=== PATIENT | female | born 1950 | race Caucasian/White ===

== ENCOUNTER 2019-04-26 17:14 | Inpatient (IN) ==
[2019-04-26] MEDS ORDERED: DUONEB (A & A) INH ONE (18:26)
--- NOTE | 2019-04-26 18:31 | PROVIDER DOCUMENTATION ---
HPI-Respiratory General - General Chief Complaint: Shortness of Breath Stated Complaint: pneumonia Time Seen by Provider: 04/26/19 18:00 Source: patient, family Allergies/Adverse Reactions: Patient Allergies Allergy/AdvReac Type Severity Reaction Status Date / Time Penicillins Allergy HIVES Verified 04/26/19 18:55 Home Medications: Home Medication List Medication Instructions Recorded Confirmed Last Taken Type Acetaminophen 650 mg PO PRN PRN 04/26/19 04/26/19 Unknown History Amlodipine [Norvasc] 1 tab PO DAILY 04/26/19 04/26/19 04/26/19 09:00 History Amoxicillin/Potassium Clav 1 tab PO DAILY 04/26/19 04/26/19 04/26/19 History [Amox-Clav 500-125 mg Tablet] Aspirin 1 tab PO DAILY 04/26/19 04/26/19 04/26/19 09:00 History Carbidopa/Levodopa [Sinemet 25/100] 1 tab PO DAILY 04/26/19 04/26/19 04/26/19 History Duloxetine [Cymbalta] 60 mg PO BID 04/26/19 04/26/19 04/26/19 09:00 History Gabapentin 1 tab PO Q4H 04/26/19 04/26/19 04/26/19 History Iron Carbonyl/Ascorbic Acid 1 tab PO DAILY 04/26/19 04/26/19 04/25/19 History [Icar-C] Levofloxacin [Levaquin] 500 mg PO DAILY 04/26/19 04/26/19 04/26/19 09:00 History Magnesium Hydroxide [Milk of 30 ml PO PRN PRN 04/26/19 04/26/19 Unknown History Magnesia] Pramipexole Di-HCl [Mirapex] 1 tab PO HS 04/26/19 04/26/19 04/25/19 21:00 History Pravastatin Sodium 40 mg PO DAILY 04/26/19 04/26/19 04/25/19 21:00 History Telmisartan/Hydrochlorothiazid 1 tab PO DAILY 04/26/19 04/26/19 04/26/19 09:00 History [Telmisartan-Hctz 80-25 mg Tab] Temazepam 1 tab PO DAILY 04/26/19 04/26/19 04/25/19 21:00 History - History of Present Illness-Resp Nature of Presenting Problem: Patient is a 69 year old white female with history of diabetes, osteomyelitis of right Charcot foot, HTN,COPD, and Parkinsons who presents by EMS from her home in [place] for increasing shortness of breath, wheezing, and productive yellow cough for past 3 days. Denies fever. [facility] after prolonged IV antibiotic treatment for osteo of right foot. Family report home oxygen sat in 70's. Followed by Dr. Sainz. Quality of Pain: reports: none Onset/Duration: reports: 3 days ago Timing: reports: still present, getting worse Exposure: reports: unknown cause Review of Systems - Adult - REVIEW OF SYSTEMS - ADULT Constitutional: reports: chills Eyes: reports: no symptoms reported Cardiovascular: denies: chest pain Respiratory: reports: cough, shortness of breath, wheezing Gastrointestinal: reports: no symptoms reported Genitourinary: reports: no symptoms reported Musculoskeletal: reports: see HPI Integumentary: reports: see HPI Neurological: reports: no symptoms reported Psychiatric: reports: anxiety Endocrine: reports: see HPI Hematologic/Lymphatic: reports: no symptoms reported Allergic/Immunologic: reports: no symptoms reported All Other Systems: Reviewed and Negative Past History - Adult - PAST MEDICAL HISTORY-ADULT Review of Records: reports: Old Records Reviewed, Nursing Assessment Review, Medications Reviewed, Social history reviewed & non-contributory. Major Childhood Illnesses: reports: denies history Cardiovascular: reports: HTN Respiratory: reports: bronchitis Gastrointestinal: reports: denies history Genitourinary: reports: denies history Musculoskeletal: reports: other (right Charcot foot with osteomyelitis) Neurological: reports: Parkinson's Psychiatric: reports: anxiety Endocrine/Immune: reports: Diabetes Diabetes Type: Type 2 - PRIOR SURGERIES/PROCEDURES Surgical/Procedure History: reports: cholecystectomy, hysterectomy - IMMUNIZATION STATUS Childhood Immunizations: UTD - FAMILY HISTORY Family History: reviewed, not pertinent - SOCIAL HISTORY Smoking: non-smoker Alcohol Use Frequency: rarely Living Situation: family Physical Exam-General - PHYSICAL EXAM-ADULT Initial Vital Signs Reviewed: Yes - CONSTITUTIONAL General Appearance: alert, obese, other (generalized weakness) - EYES Eyes: other (clear) - HEAD, EARS, NOSE, MOUTH & THROAT HENMT: moist mucous membranes - NECK Neck: supple - RESPIRATORY Respiratory: no respiratory distress, no accessory muscle use, decreased breath sounds, wheezing - CARDIOVASCULAR Cardiovascular: regular rate, rhythm - GASTROINTESTINAL (ABDOMEN) Abdominal Exam: non tender, soft, other (obese) - LYMPHATIC Lymphatic: no adenopathy - MUSCULOSKELETAL Back Exam: normal inspection Extremity: other (right charcot foot with no open wounds or sign of infection) Peripheral Pulses: radial (R): 2+, radial (L): 2+ - SKIN Integumentary: normal color, normal turgor, warm/dry - NEUROLOGIC Neurologic: other (resting pill rolling hand tremor) - PSYCHIATRIC Psych/Mental Status: oriented x 3, anxious Progress - PLAN OF CARE/RESULTS Progress/Plan/Lab Results: Vital Signs - 8 hr 04/26/19 19:30 04/26/19 21:42 04/27/19 01:58 Pulse Rate 88 71 97 H Respiratory Rate 20 18 18 Blood Pressure 133/66 125/77 O2 Sat by Pulse Oximetry 95 98 99 Laboratory Results - last 24 hr 04/26/19 04/26/19 04/26/19 18:41 19:04 19:04 WBC RBC Hgb Hct MCV MCH MCHC RDW Std Deviation Plt Count MPV Neut % (Auto) Lymph % (Auto) [place] % (Auto) Eos % (Auto) Baso % (Auto) Neut # (Auto) Lymph # (Auto) [place] # (Auto) Eos # (Auto) Baso # (Auto) D-Dimer, Quantitative 0.99 H Specimen Type ARTERIAL Sample Site R RADIAL pH 7.41 pCO2 51 H* pO2 61 HCO3 29.8 H Base Excess 6.4 H Oxyhemoglobin 90.6 L ABG O2 Sat (Calculated) 15.6 ABG O2 Saturation 93.6 L ABG Carboxyhemoglobin 2.10 ABG Methemoglobin 1.1 Christopher Test YES A-a O2 Difference 25.0 Total Hemoglobin 12.2 Lactate 1.30 Blood Gas Modality CANNULA FiO2 % 21.0 Sodium 145 Potassium 3.8 Chloride 101 Carbon Dioxide 30 Anion Gap 14 BUN 25 H Creatinine 0.5 Estimated GFR/1.73 m2 > 60 BUN/Creatinine Ratio 50 Glucose 104 Calculated Osmolality 293 Calcium 9.5 Total Bilirubin 0.35 AST 13 ALT < 5 L Alkaline Phosphatase 98 Troponin T High Sens Kkg-H-Ilypjiqvauz Pept Total Protein 7.4 Albumin 4.2 Globulin 3.2 Albumin/Globulin Ratio 1.3 04/26/19 04/26/19 04/26/19 19:04 19:04 19:04 WBC 5.69 RBC 4.16 L Hgb 11.9 L Hct 38.5 MCV 92.5 MCH 28.6 MCHC 30.9 L RDW Std Deviation 15.3 H Plt Count 203 MPV 11.5 H Neut % (Auto) 66.6 Lymph % (Auto) 14.8 L [place] % (Auto) 14.9 H Eos % (Auto) 3.5 Baso % (Auto) 0.2 Neut # (Auto) 3.79 Lymph # (Auto) 0.84 L [place] # (Auto) 0.85 H Eos # (Auto) 0.20 Baso # (Auto) 0.01 D-Dimer, Quantitative Specimen Type Sample Site pH pCO2 pO2 HCO3 Base Excess Oxyhemoglobin ABG O2 Sat (Calculated) ABG O2 Saturation ABG Carboxyhemoglobin ABG Methemoglobin Christopher Test A-a O2 Difference Total Hemoglobin Lactate Blood Gas Modality FiO2 % Sodium Potassium Chloride Carbon Dioxide Anion Gap BUN Creatinine Estimated GFR/1.73 m2 BUN/Creatinine Ratio Glucose Calculated Osmolality Calcium Total Bilirubin AST ALT Alkaline Phosphatase Troponin T High Sens 10 Xls-G-Qasekhsegmb Pept 112 Total Protein Albumin Globulin Albumin/Globulin Ratio Orders Category Date Time Status Saline Loc NOW Care 04/26/19 18:02 Active CHEST-PORTABLE [RAD] Stat Exams 04/26/19 18:03 Completed CTA [CT ANGIOGRM PULMONARY ARTERIES] [CT] Stat Exams 04/26/19 21:26 Completed ABG [RESP] Routine Lab 04/26/19 18:41 Completed BLOOD CULTURE [BLDCUL] Stat Lab 04/26/19 21:02 Results CBC WITH DIFF [HEME] Stat Lab 04/26/19 19:04 Completed COMPREHENSIVE METABOLIC PANEL [CHEM] Stat Lab 04/26/19 19:04 Completed D-DIMER [COAG] Stat Lab 04/26/19 19:04 Completed PRO B-NATRIURETIC PEPTIDE Stat Lab 04/26/19 19:04 Completed TROPONIN T HIGH SENSITIVITY Stat Lab 04/26/19 19:04 Completed Albuterol 2.5MG/Ipratrop 0.5MG [Duoneb (A & A)] Med 04/26/19 18:26 Discontinued 3 ml INH NOW ONE CefTRIAXONE [Rocephin] 1 gm Med 04/26/19 19:20 Discontinued 0.9% Sodium Chloride Inj [Ns] 50 ml IV NOW Methylprednisolone Sod Succ [Solu-Medrol] Med 04/26/19 19:20 Discontinued 125 mg IV STAT ONE Aerosol Treatments Routine Oth 04/26/19 18:26 Completed Aerosol Treatments Stat Oth 04/26/19 18:26 Completed Pulse Oximetry Stat Oth 04/26/19 18:02 Completed EKG [EKG] Stat Ther 04/26/19 18:[address] Ward at 2325 to admit patient Result Diagrams: 04/26/19 19:04 04/26/19 19:04 - REASSESSMENT Reassessment #1 Time Reassessed: 23:25 Status: improving Reassessment Comment: breathing is improved - EKG 1 Time of EKG reading by physician:: 21:10 EKG Read and Signed by:: Ryan Engle Rate: 94 Rhythm: nsr Comments: NO STEMI - XRAY 1 XRAY Study: Chest XRAY Interpretation: NAD, cardiomegaly - CT/MRI 1 CT Study: Angiogram, Thorax CT Results: no PE - CONSULTS/PCP/HOSPITALIST Notification #1 *Consult/PCP/Hospitalist*: DR. WARD Time Discussed: 23:45 Consult Disposition: Admit Departure - Departure Date of Disposition Decision: 04/26/19 Time of Disposition Decision: 23:34 DIAGNOSIS: COPD exacerbation, Hypoxemia Disposition: ADMITTED INPATIENT 09 Certified Medical Emergency: Emergent Condition: Stable Referrals and Follow-Ups: None,PCP [Primary Care Provider] - - Critical Care Note This patient required my direct & personal management of CC.: No Attestation - Physician/ LUIS A Attestation Patient care was provided by Advanced Practice Provider:: No The physician spent face to face time with patient:: Yes Advanced Practice Provider documentation review:: Supervising physician onsite and consulted in the evaluation and care of this patient. The physician did have a face to face encounter with the patient.
--- NOTE | 2019-04-26 18:34 | Diag Imaging Result Doc PS360 ---
EXAM: CHEST-PORTABLE - 04/26/2019 HISTORY: sob TECHNIQUE: Portable chest COMPARISON: None. FINDINGS: Heart size appears borderline enlarged. The lungs appear clear. There is no pleural effusion or pneumothorax identified. IMPRESSION: Borderline cardiomegaly. No other evidence of acute disease. Electronically signed by Brandon Holland 04/26/2019 6:32 PM
[2019-04-26 18:52] LABS: ALLEN TEST YES; BE 6.4 mmoll (-3.0-3.0); BLOOD TYPE ARTERIAL; HCO3-(ACT) 29.8 mmoll (20.0-26.0); METHB 1.1 % (0.0-1.5); O2(CT) 15.6 mL/dL (15.0-23.0); O2HB 90.6 % (95.0-99.0); PO2(98.6) 61 mmHg (60-100); SAMPLE BLOOD; SAO2 93.6 % (95.0-100.0); THB 12.2 g/dL (11.5-17.4); pH(98.6) 7.41 (7.35-7.45)
[2019-04-26 18:56] LABS: MODALITY CANNULA; PCO2(98.6) 51 mmHg (35-45)
[2019-04-26] MEDS ORDERED: ROCEPHIN 1 GM in NS 50 ML IV ONE (19:20)
[2019-04-26] MEDS ORDERED: SOLU-MEDROL IV ONE (19:20)
[2019-04-26 19:58] LABS: BASO# 0.01 X1000 (0.0-0.2); BASO% 0.2 % (0.0-0.8); EOS% 3.5 % (0.0-10.0); HEMATOCRIT 38.5 % (37.0-47.0); HEMOGLOBIN 11.9 g/dL (12.0-16.0); LYMPH# 0.84 X1000 (1.2-3.4); LYMPH% 14.8 % (20.5-51.1); MCH 28.6 PG (27-31); MCHC 30.9 g/dL (33-37); MCV 92.5 FL (81-99); MONO# 0.85 X1000 (0.11-0.59); MONO% 14.9 % (1.7-9.3); MPV 11.5 FL (7.4-10.4); NEUT# 3.79 X1000 (1.4-6.5); NEUT% 66.6 % (42.2-75.2); PLT 203 X1000 (130-400); RBC 4.16 XMIL (4.2-5.4); RDW 15.3 % (11.5-14.5); WBC 5.69 X1000 (4.8-10.8)
[2019-04-26 20:22] LABS: ESTIMATED GFR > 60
[2019-04-26 20:26] LABS: AGAP 14; ALB/GLOB RATIO 1.3; ALBUMIN 4.2 g/dL (3.5-5.0); ALKALINE PHOSPHATASE 98 U/L (32-104); BUN 25 mg/dL (8-22); CALCIUM 9.5 mg/dL (8.8-10.2); CHLORIDE 101 mmol/L (98-107); COSMO 293; CREATININE 0.5 mg/dL (0.5-0.9); GLUCOSE 104 mg/dL (70-104); GOT 13 U/L (10-30); GPT < 5 U/L (10-36); POTASSIUM 3.8 mmol/L (3.5-5.1); SODIUM 145 mmol/L (136-145); TCO2 30 mmol/L (25-35); TOTAL BILIRUBIN 0.35 mg/dL (0.20-1.00); TOTAL PROTEIN 7.4 g/dL (6.3-8.3)
--- NOTE | 2019-04-26 21:27 | EKG Report ---
Test Performed on : 04/26/2019 9:09:19 PM Test Reason : pain Blood Pressure : / mmHG Vent. Rate : 094 BPM Atrial Rate : 094 BPM P-R Int : 216 ms QRS Dur : 140 ms QT Int : 402 ms P-R-T Axes : 039 245 041 degrees QTc Int : 502 ms Sinus rhythm. with 1st degree AV block. Right bundle branch block Inferior infarct , age undetermined Anterolateral infarct , age undetermined Abnormal ECG No previous ECGs available Unconfirmed Result
--- NOTE | 2019-04-26 22:18 | Diag Imaging Result Doc PS360 ---
EXAM: CT ANGIOGRAM PULMONARY ARTERIES - 04/26/2019 HISTORY: Sob, elevated D-DIMER TECHNIQUE: CT angiogram pulmonary arteries with intravenous contrast. Axial, coronal, and 3-D MIP images are obtained. COMPARISON: None. FINDINGS: There are artifacts from the patient's body habitus which mildly limit detail. There are no filling defects identified in the pulmonary arteries. There is possible stenosis of the medial left subclavian vein versus artifact of positioning. There is no indication of aortic dissection. The ascending aorta is ectatic up to 3.9 cm. The lungs appear essentially clear. There is no pleural effusion or pneumothorax identified. There is mild left hilar and mediastinal adenopathy, most prominent at the subcarinal region. Included sections of upper abdomen show enlargement of the bilateral adrenal glands. IMPRESSION: No evidence of pulmonary embolism. Possible stenosis of the medial left subclavian vein versus artifact of positioning. Ectasia of ascending aorta up to 3.9 cm. No indication of aortic dissection. No evidence of pneumonia. No pneumothorax. Mild left hilar and mediastinal adenopathy. Bilateral adrenal enlargement. Electronically signed by Brandon Holland 04/26/2019 10:15 PM
[2019-04-27] MEDS ORDERED: ZOFRAN IV PRN (03:35)
[2019-04-27] MEDS ORDERED: MILK OF MAGNESIA PO PRN (03:35)
--- NOTE | 2019-04-27 03:56 | HISTORY AND PHYSICAL ---
PRIMARY CARE PHYSICIAN: No listed primary care physician. REASON FOR ADMISSION: Three day history of cough, wheezing, and shortness of breath. HISTORY OF PRESENT ILLNESS: Ms. Sadie Sharp is a 69-year-old woman with past medical history of type 2 diabetes complicated with Charcot foot, and even complicated with osteomyelitis of said right foot. She also has a history of Parkinson;s disease, restless legs syndrome I believe. She also has a history of hypertension. The patient was treated for a total of 6 weeks for osteomyelitis of the right foot which was secondary to her preexisting Charcot foot infection. She recently got [place] of the [place] [facility] at [place] 3 days ago. She states that the day before she left two of the [place] [facility] staff had "cold like illness", and she started that same day noticed that she too was coughing. The day of discharge she started having wheezing spells and coughing up yellowish sputum. Denies any upper respiratory symptoms otherwise. Also denies fever or chills although her daughter states that she feels that her mother is very sensitive to cold, but on this occasion, says she is a little warm, but no hot. The patient denies any leg swelling, PND, or orthopnea. She says she has been wheezing for the last couple of days and profoundly short of breath with mild exertion. O2 saturation recorded at home was 70%. The patient was brought in for that primary reason. She denies any GI or complaints. She denies any chest pain or anginal-type symptoms. No polyuria or polydipsia. No nausea, vomiting, or diarrhea. REVIEW OF SYSTEMS: A 12 point review of system is negative other than her daughter says she had developed a sore throat 2 days ago, and she has been staying with her mother. No arthralgia. No nausea, arthralgia, or rash. ALLERGIES: Penicillin. HOME MEDICATIONS: Norvasc 10 mg daily. She has been on oral antibiotics Augmentin daily and Levaquin 500 mg daily, iron tablets daily, gabapentin 40 mg 4 times a day, duloxetine 60 mg b.i.d., aspirin 81 mg daily, Tylenol 650 p.r.n., Mirapex 1.5 mg at bedtime, Milk of Magnesia 30 mL p.r.n., Pravastatin 40 mg daily, Sinemet 25 mg daily, Micardis/hydrochlorothiazide 80/25 mg daily, and temazepam 50 mg daily. PAST SURGICAL HISTORY: She had bilateral hip surgery. Two right foot surgeries. Cholecystectomy. Hysterectomy. FAMILY HISTORY: Notable for strokes in both parents. SOCIAL HISTORY: Does not smoke, drink, or use drugs. Lives with son and daughter. LABORATORY DATA: White count 5000, hemoglobin and hematocrit 12 and 38, and platelets 203,000 with normal differential. BUN is 25 and creatinine 0.5. Troponins negative. ProBNP negative. A pH 7.45, pCO2 51, PO2 61, and is on room air. Chest film showed borderline cardiomegaly with no acute disease. CTA angiogram was done with the elevated D-dimer. It was a poor study, but it showed ectasias of the ascending aorta up to 4 cm. No evidence of pneumonia or pneumothorax. Mild left hilar mediastinal adenopathy with bilateral adrenal enlargement, and possible stenosis of the left subclavian vein. PHYSICAL EXAMINATION: VITAL SIGNS: Blood pressure 125/77, heart rate 97, respiratory rate 18, and temperature is 97.8. She is 99% on room air. GENERAL: She is an elderly white female who is in mild respiratory distress. Alert and oriented x3. Normal mood and affect. HEENT: Head is normocephalic and atraumatic. Eyes: RIC, EOMI. Anicteric and not pale. ENT and oral exam is grossly normal. NECK: Supple. No JVD visualized. No bruits or thyromegaly. CHEST: Bibasilar crepitations. Expiratory wheezes and decreased entry in the bases. CARDIOVASCULAR: First and sounds heard. No gallops or rubs. Regular. ABDOMEN: Protuberant. Soft, and not tender. No mass or organomegaly. Bowel sounds are hypoactive. RECTAL: Deferred at this time. EXTREMITIES: Patient has a dressing of the right foot. Distal pulses in all extremities are diminished, worse in the lower extremity compared to the upper extremities. No clubbing or peripheral cyanosis. NEUROLOGICAL: Patient has pill-rolling tremor. No gross focal deficits. SKIN: Intact. No breakdown or erythema. MUSCULOSKELETAL: Patient has valgum deformity of the right foot. ASSESSMENT: Acute respiratory failure, probably secondary to COPD exacerbation/pneumonitis, and possible viral pneumonitis. PLAN: To get a flu swab ordered. In light of where she is coming from, we will start antibiotics to cover for nosocomial pathogens. We will also need to keep patient in isolation because of the remote possibility that she may have COVID 19 illness. If flu is negative, I would recommend this also being ruled out in this patient because of her presentation. Start patient on breathing treatments, i.e. short and long-acting bronchodilators. Sputum cultures will be sent. If sputum cultures and other workup negative, will recommend discontinuing antibiotics after a couple of days. May elect to do a follow-up PA and lateral in 2 days to see if any pneumonic processes has developed. If it is negative, please discontinue antibiotics. The patient appears to be slightly dehydrated based on her BUN and creatinine, and we will start patient on fluids. We will withhold antihypertensives if systolic blood pressure less than 140. cc: Edmundo Rg MD
[2019-04-27] MEDS: NS 1,000 ML IV SCH ×2 (05:14→13:58)
[2019-04-27] MEDS: NEURONTIN PO SCH ×5 (05:18→22:33)
[2019-04-27] MEDS: LOVENOX SUBQ SCH (05:19)
[2019-04-27] MEDS ORDERED: BROVANA NEB INH SCH (07:30)
[2019-04-27] MEDS ORDERED: BROVANA NEB ONE (07:45)
[2019-04-27] MEDS: HUMALOG SUBQ SCH ×4 (07:59→20:43)
[2019-04-27] MEDS ORDERED: SINEMET 25/100 PO SCH (09:00)
[2019-04-27] MEDS: LEVAQUIN PO SCH (09:49)
[2019-04-27] MEDS: MAXIPIME 1 GM in NS 50 ML IV SCH ×2 (09:49→20:41)
[2019-04-27] MEDS: ICAR-C PO SCH (09:50)
[2019-04-27] MEDS: ASPIRIN PO SCH (09:50)
[2019-04-27] MEDS: MUCINEX PO SCH ×2 (09:51→20:42)
[2019-04-27] MEDS: MICARDIS PO SCH (09:51)
[2019-04-27] MEDS: HYDROCHLOROTHIAZIDE PO SCH (09:51)
[2019-04-27] MEDS: CYMBALTA PO SCH ×2 (09:51→20:41)
[2019-04-27] MEDS: PRAVACHOL PO SCH (09:52)
[2019-04-27] MEDS: NORVASC PO SCH (09:52)
[2019-04-27] MEDS ORDERED: DUONEB (A & A) INH SCH (10:00)
[2019-04-27] MEDS: VENTOLIN HFA INH SCH ×3 (12:16→20:50)
[2019-04-27 13:44] LABS: URINE SOURCE CATH
[2019-04-27 13:59] LABS: BILIRUBIN URINE NEGATIVE (NEGATIVE); BLOOD URINE NEGATIVE (NEGATIVE); COLOR YELLOW; GLUCOSE URINE NEGATIVE (NEGATIVE); KETONE URINE NEGATIVE (NEGATIVE); LEUKOCYTES URINE NEGATIVE (NEGATIVE); NITRITE URINE NEGATIVE (NEGATIVE); PROTEIN URINE TRACE mg/dL (NEGATIVE); SP GRAVITY URINE 1.043; TURBIDITY URINE CLEAR (CLEAR); UROBILINOGEN URINE NORMAL (NORMAL)
[2019-04-27 14:03] LABS: UR EPITHELIAL CELLS <10 /HPF (<10); URINE BACTERIA NEGATIVE /HPF; URINE RBC <10 /HPF (<10); URINE WBC <10 /HPF (<10)
[2019-04-27 14:11] LABS: URINE YEAST PRESENT
[2019-04-27] MEDS: SINEMET 25/100 PO SCH ×2 (17:12→20:40)
--- NOTE | 2019-04-27 19:31 | Diag Imaging Result Doc PS360 ---
CHEST-PORTABLE - 04/27/2019 INDICATION: elevated lactate COMPARISON: 04/26/2019 FINDINGS: The lungs are normally expanded and clear. Heart size and mediastinal contours are normal. No pneumothorax or pleural effusion. IMPRESSION: Negative exam. Electronically signed by Jermaine Guevara 04/27/2019 7:28 PM
[2019-04-27] MEDS: MIRAPEX PO SCH (20:42)
[2019-04-27] MEDS: D5 1/2 NS 1,000 ML IV SCH (20:43)
[2019-04-28] MEDS: VENTOLIN HFA INH SCH ×5 (00:01→21:35)
[2019-04-28] MEDS: SINEMET 25/100 PO SCH ×6 (00:10→20:11)
[2019-04-28] MEDS: NEURONTIN PO SCH ×6 (02:19→22:27)
[2019-04-28] MEDS: LOVENOX SUBQ SCH (04:53)
[2019-04-28] MEDS: HUMALOG SUBQ SCH ×4 (06:41→22:26)
[2019-04-28 07:41] LABS: BASO# 0.02 X1000 (0.0-0.2); BASO% 0.2 % (0.0-0.8); EOS# 0.02 X1000 (0.0-0.7); EOS% 0.2 % (0.0-10.0); HEMATOCRIT 36.8 % (37.0-47.0); HEMOGLOBIN 10.9 g/dL (12.0-16.0); IMM GRAN# 0.02 X1000 (0.0-0.04); IMM GRAN% 0.2 % (0.0-0.5); LYMPH# 0.69 X1000 (1.2-3.4); LYMPH% 8.6 % (20.5-51.1); MCH 27.3 PG (27-31); MCHC 29.6 g/dL (33-37); MONO# 0.55 X1000 (0.11-0.59); MONO% 6.8 % (1.7-9.3); MPV 10.8 FL (7.4-10.4); NEUT# 6.74 X1000 (1.4-6.5); PLT 188 X1000 (130-400); WBC 8.04 X1000 (4.8-10.8)
[2019-04-28 08:04] LABS: MAGNESIUM 1.7 mg/dL (1.5-2.7); PHOSPHORUS 2.9 mg/dL (2.7-4.5)
[2019-04-28 08:07] LABS: AGAP 11; BUN 19 mg/dL (8-22); CALCIUM 8.7 mg/dL (8.8-10.2); CHLORIDE 102 mmol/L (98-107); COSMO 288; CREATININE 0.6 mg/dL (0.5-0.9); ESTIMATED GFR > 60; GLUCOSE 146 mg/dL (70-104); POTASSIUM 3.5 mmol/L (3.5-5.1); SODIUM 142 mmol/L (136-145); TCO2 29 mmol/L (25-35)
[2019-04-28] MEDS: D5 1/2 NS 1,000 ML IV SCH ×2 (10:46→22:27)
[2019-04-28] MEDS: ICAR-C PO SCH (10:48)
[2019-04-28] MEDS: ASPIRIN PO SCH (10:48)
[2019-04-28] MEDS: LEVAQUIN PO SCH (10:48)
[2019-04-28] MEDS: CYMBALTA PO SCH ×2 (10:48→20:11)
[2019-04-28] MEDS: PRAVACHOL PO SCH (10:49)
[2019-04-28] MEDS: MUCINEX PO SCH ×2 (10:49→20:13)
[2019-04-28] MEDS: MAXIPIME 1 GM in NS 50 ML IV SCH ×2 (10:49→20:13)
--- NOTE | 2019-04-28 14:18 | PROGRESS NOTE ---
DATE: 04/28/2019 SUBJECTIVE: The patient is lying comfortably in bed. She is still having mild shortness of breath but is getting better, she is having mild end-expiratory wheezing bilaterally and some decreased breath sounds generalized, crepitus. OBJECTIVE: Vital Signs: Temperature 98.4 degrees, pulse 60, respiratory rate 16, blood pressure 148/66, oxygen saturation 94% on 3 L of nasal cannula. HEENT: Head normocephalic, no trauma. PERRLA. Neck: Supple. No JVD. No masses. Central trachea. Chest: Decreased breath sounds globally with crepitus and end expiratory wheezing. Abdomen: Soft, protuberant, nontender, nondistended. No hepatosplenomegaly. Extremities: Dressing on the right foot due to Charcot foot and recent surgery. Neurological: The patient had tremors due to Parkinson's. LABORATORY: WBC 8.0, hemoglobin 10.9, hematocrit 36.8, platelet 188,000, sodium 142, potassium 3.5, chloride 102, bicarbonate 29, BUN 19, creatinine 0.6, glucose 146, calcium 8.7, magnesium 1.7. ASSESSMENT AND PLAN: 1. Acute respiratory failure likely secondary to COPD exacerbation/pneumonitis, possible viral pneumonitis, pending COVID-19 results. We will continue with same management. Pulmonary Department on board. 2. Type 2 diabetes. Continue with same management. 3. Parkinson's disease and restless legs syndrome. Aware. Continue with same treatment for now. 4. History of hypertension. Blood pressure has been stable. Continue with the same treatment. She is on telmisartan. 5. For the possibility of pneumonia/co-infection, this patient has been placed on antibiotics. We will continue with same, monitor, and she has been followed by Pulmonary Department. We will appreciate their recommendations. cc: Rodolfo Neumann MD
[2019-04-28] MEDS: ZYRTEC PO SCH (15:05)
[2019-04-28] MEDS: SOLU-MEDROL IV SCH ×2 (17:57→22:47)
--- NOTE | 2019-04-28 19:02 | PULMONOLOGY CONSULTATION ---
DATE: 04/28/2019 REQUESTING PROVIDER: Dr. Rodolfo Dsouza. REASON FOR CONSULTATION: Respiratory failure. HISTORY OF PRESENT ILLNESS: This is a 69-year-old female with a medical history of diabetes mellitus type 2, recent history of Charcot foot complicated with osteomyelitis, Parkinson disease, restless legs syndrome, and hypertension. She was discharged from [facility] on 04/23/2019. Apparently on 04/22/2019, the patient started feeling a cold-like illness, including cough, wheezing and shortness of breath which was progressively worsening. The patient was desaturated with oxygen saturation at 70% at home on 04/26/19. She was brought to the ER. Initial chest x-ray shows borderline cardiomegaly but no evidence of acute disease. Initial lab work showing elevated D-dimer, mild hypercapnia and elevated plasma lactate up to 3.6. CT angiogram pulmonary arteries on 04/26/2019 showed no evidence of pneumonia. No evidence of pulmonary embolism, possible stenosis of medial left subclavian vein versus artifact of positioning, ectasia of ascending aorta but no indication of aortic dissection. No pneumothorax. Mild left hilar and mediastinal adenopathy with bilateral adrenal enlargement. She has been admitted to the medical floor for further examination and for further evaluation and management. She has been on antibiotics, including cefepime and Levaquin, and Ventolin inhaler. She also received Solu-Medrol 125 mg in the ER once. The patient currently is lying in bed and appears miserable. She does have audible expiratory wheezing during my encounter. She has runny nose. She is complaining of nasal congestion, wheezing, productive cough, significant shortness of breath, especially with activities but no fever, chest pain, palpitation, bowel habit change, urination discomfort, pedal edema. She did have some sore throat. PAST MEDICAL HISTORY: 1. Diabetes mellitus type 2. 2. Recent history of Charcot foot of right foot complicated with osteomyelitis. 3. Parkinson disease. 4. Restless legs syndrome. 5. Hypertension. 6. Morbid obesity. BMI 38.5 with hypertension and diabetes. PAST SURGICAL HISTORY: 1. Bilateral hip surgery. 2. Right foot surgery x2. 3. Cholecystectomy. 4. Hysterectomy. 5. Stereotactic biopsy of left breast. SOCIAL HISTORY: Patient was discharged home from [facility] on 04/23/2019. Prior to this admission, patient stayed home with her son. She has [facility]. She reports no history of alcohol, tobacco, or illicit drug use. FAMILY HISTORY: Positive for stroke. ALLERGIES: Penicillin. REVIEW OF SYSTEMS: A 10-point review of systems was conducted and the pertinent is listed within the HPI, otherwise noncontributory. PHYSICAL EXAMINATION: Vital Signs: Temperature 98, blood pressure 142/72, respiratory rate 19, pulse 103, oxygen saturation 100% on nasal cannula at 2.5 L. General: Obese, lying in bed with mild respiratory distress, which is worsened when patient speaks. HEENT: Atraumatic, normocephalic. Trachea midline. Mucosa pink and moist. Oropharynx clear. No thrush noted. Pupils equal, round, reactive to light. Respiratory: Mildly labored with increased work of breathing noted but no accessory muscle use is noted. Symmetrical excursion. Auscultation revealed a few expiratory crackles bilaterally with some expiratory wheezing bilaterally and prolonged expiratory phase. The patient also has audible expiratory wheezing noted. Cardiovascular: Regular rate and rhythm with S1, S2 appreciated. Gastrointestinal: Soft, nontender, protuberant. Bowel sounds present in all 4 quadrants. Extremities: Dressing on the right foot, clean and intact. No edema noted on the left foot. No cyanosis. No clubbing. Neurologic: Alert and oriented x3. Speech fluent. Follows commands. Bilateral upper extremity severe tremor noted with right upper extremity worse than the left upper extremity. LAB DATA: White blood cell 8.04, hemoglobin 10.8, hematocrit 36.8, platelet 188,000 sodium 142, potassium 3.5, chloride 102, carbon dioxide 29, BUN 19, creatinine 0.6, glucose 114. IMAGING DATA: Chest x-ray on April 27, 2019 showed negative exam and which is sent as chest x-ray on 04/26/2019. See HPI for CT angiogram pulmonary arteries on 04/26/2019. ASSESSMENT: This is a 69-year-old female with a medical history of diabetes mellitus type 2, complicated with recent Charcot foot and osteomyelitis of right foot, Parkinson disease, restless legs syndrome and hypertension. She has been admitted since 04/27/2019 with acute respiratory failure probably secondary to chronic obstructive pulmonary disease exacerbation or possible viral pneumonitis. 1. Acute hypoxic respiratory failure. 2. Bronchitis versus possible viral pneumonitis. Covid-19 testing performed and pending on results. Influenza tests are negative. 3. Allergic rhinitis. 4. Morbid obesity. BMI 38.5 with hypertension and diabetes. PLAN: 1. Continue supplemental oxygen as needed. We will follow up ABG tomorrow. 2. We will follow-up Covid-19 results. 3. Continue antibiotics, cefepime and Levaquin. 4. We add Flonase and Zyrtec. 5. Continue Ventolin inhaler. Patient and family reported that nebulizer will help a lot, but as this patient currently is on isolation for possible Covid-19, DuoNeb nebulizer is not recommended at this time. 6. We add IV Solu-Medrol 40 mg q.6 hours at this time. 7. Continue GI and DVT prophylaxis. 8. Further recommendations pending hospital course. Thank you for the courtesy of this consult. Dr. Chan did the examination, evaluation, management and orders. MIKAYLA did the dictation for Dr. Chan according to his direction. Dictated by MIKAYLA Mccloud for Bhavna Chan MD cc: MIKAYLA Mccloud MD [facility]
[2019-04-28] MEDS: FLONASE NAS SCH (20:12)
[2019-04-28] MEDS: MIRAPEX PO SCH (20:13)
[2019-04-29] MEDS: SINEMET 25/100 PO SCH ×6 (00:01→22:38)
[2019-04-29] MEDS: LOVENOX SUBQ SCH (02:54)
[2019-04-29] MEDS: NEURONTIN PO SCH ×6 (02:54→22:33)
[2019-04-29] MEDS: VENTOLIN HFA INH SCH ×4 (04:00→20:15)
[2019-04-29] MEDS: SOLU-MEDROL IV SCH ×4 (04:35→22:33)
[2019-04-29 05:39] LABS: ALLEN TEST YES; BE 5.7 mmoll (-3.0-3.0); BLOOD TYPE ARTERIAL; HCO3-(ACT) 29.4 mmoll (20.0-26.0); METHB 1.2 % (0.0-1.5); O2(CT) 15.7 mL/dL (15.0-23.0); O2HB 96.1 % (95.0-99.0); PCO2(98.6) 48 mmHg (35-45); PO2(98.6) 103 mmHg (60-100); SAMPLE BLOOD; SAO2 99.1 % (95.0-100.0); THB 11.5 g/dL (11.5-17.4); pH(98.6) 7.42 (7.35-7.45)
[2019-04-29 05:40] LABS: MODALITY CANNULA
[2019-04-29] MEDS: HUMALOG SUBQ SCH ×4 (06:43→22:35)
[2019-04-29] MEDS: D5 1/2 NS 1,000 ML IV SCH ×2 (07:01→10:52)
[2019-04-29 08:17] LABS: AGAP 13; BUN 14 mg/dL (8-22); CALCIUM 9.2 mg/dL (8.8-10.2); CHLORIDE 99 mmol/L (98-107); COSMO 293; CREATININE 0.6 mg/dL (0.5-0.9); ESTIMATED GFR > 60; GLUCOSE 259 mg/dL (70-104); MAGNESIUM 1.8 mg/dL (1.5-2.7); PHOSPHORUS 2.7 mg/dL (2.7-4.5); POTASSIUM 3.8 mmol/L (3.5-5.1); SODIUM 142 mmol/L (136-145); TCO2 30 mmol/L (25-35)
[2019-04-29] MEDS: LEVAQUIN PO SCH (10:28)
[2019-04-29] MEDS: ZYRTEC PO SCH (10:28)
[2019-04-29] MEDS: CYMBALTA PO SCH ×2 (10:28→22:34)
[2019-04-29] MEDS: MUCINEX PO SCH ×2 (10:28→22:32)
[2019-04-29] MEDS: ASPIRIN PO SCH (10:29)
[2019-04-29] MEDS: ICAR-C PO SCH (10:29)
[2019-04-29] MEDS: MAXIPIME 1 GM in NS 50 ML IV SCH ×2 (10:30→22:35)
[2019-04-29] MEDS: PRAVACHOL PO SCH (10:31)
[2019-04-29] MEDS: FLONASE NAS SCH ×2 (10:31→22:34)
--- NOTE | 2019-04-29 12:07 | PROGRESS NOTE ---
DATE: 04/29/2019 SUBJECTIVE: This patient is lying comfortably in bed. She is still having shortness of breath and wheezing, and crepitus as well. She does have generalized weakness, pending COVID 19 results. OBJECTIVE: Vital Signs: Temperature 98.3 degrees, pulse 104, respiratory rate 19, blood pressure 150/80, and oxygen saturation 96 on 3 L of nasal cannula. HEENT: Head normocephalic. No trauma. PERRLA. Neck: Supple. No JVD. No masses. Central trachea. Chest: Decreased breath sounds globally with crepitus and expiratory wheezing, prolonged expiratory phase. Abdomen: Soft, protuberant, nontender, and nondistended. No hepatosplenomegaly. Extremities: She has a dressing on the right foot due to Charcot foot and recent surgery. Neurological: This patient had tremors due to Parkinson's, but she is oriented and following commands. LABORATORY: Sodium 142, potassium 3.8, chloride 99, bicarbonate 30, BUN 14, creatinine 0.6, glucose 259, calcium 9.2, and phosphorus 1.8. ASSESSMENT AND PLAN: 1. Acute respiratory failure secondary to COPD exacerbation/pneumonitis, possible viral pneumonitis, pending COVID 19 results. We will continue with same management. Pulmonary Department on board. 2. Type 2 diabetes. Continue with same management. This patient is getting steroids and probably the blood sugar is uncontrolled because of that. 3. Parkinson's disease and restless leg syndrome, aware. 4. History of hypertension, blood pressure has been stable. 5. Because of the possibility of pneumonia/Co- infection, this patient has been placed on antibiotics as well. Pulmonary Department has been consulted and following this patient closely. 6. Morbid obesity with a body mass index of 38.5. Aware. cc: Rodolfo Neumann MD MTDD
--- NOTE | 2019-04-29 17:40 | PROVIDER PROGRESS NOTE ---
Progress Note Dr. Chan Progress Note/Pulmonary and or critical care Subjective: The patient is lying in bed on NC 3L with no acute distress noted. She reports productive cough, nasal congestion and SOB. Her BUE tremor appears worse today and she even could not dial the phone to call her daughter. She also complains of hyperglycemia with FSBS up to 500 at an earlier time. Objective: Vital Signs: T 98.3 (no fever in last 24 hours), NM 104, RR 19, BP 150/80 and SaO2 100% on NC 3L. Physical Examination: General: Obese. Lying in bed with no acute distress noted. HEENT: Normocephalic. Atraumatic. Trachea midline. Mucosa pink and moist. Oropharynx clear. PERRL. Chest: Even and unlabored. Symmetrical excursion. Auscultation reveals coarse inspiratory crackles in bilateral upper lung zones with mild expiratory wheezing bilaterally and prolonged expiratory phase. The patient still has audible expiratory wheezing. CVS: Mild tachycardia. Regular rate and rhythm. S1 and S2 appreciated. Abdomen: Soft. Non-tender. Protuberant. Normoactive bowel sounds in all 4 quadrants. Extremities: Dressing on the right foot clean and intact. No edema on the left foot. Neuro: A/O x3. Speech fluent. Follow commands. BUE severe tremor noted with RUE worse than LUE. Labs and Radiology: Laboratory Results 04/29/19 04/29/19 04/29/19 05:20 07:02 10:52 Specimen Type ARTERIAL Sample Site R RADIAL pH 7.42 pCO2 48 H pO2 103 H HCO3 29.4 H Base Excess 5.7 H Oxyhemoglobin 96.1 ABG O2 Sat (Calculated) 15.7 ABG O2 Saturation 99.1 ABG Carboxyhemoglobin 1.70 ABG Methemoglobin 1.2 Christopher Test YES A-a O2 Difference 65.0 Total Hemoglobin 11.5 Lactate 2.70 H Liter Flow 3.0 Blood Gas Modality CANNULA FiO2 % 32.0 Sodium 142 Potassium 3.8 Chloride 99 Carbon Dioxide 30 Anion Gap 13 BUN 14 Creatinine 0.6 Estimated GFR/1.73 m2 > 60 BUN/Creatinine Ratio 23 Glucose 259 H D POC Glucose 284 H D Calculated Osmolality 293 Calcium 9.2 Phosphorus 2.7 Magnesium 1.8 04/29/19 04/29/19 12:08 16:34 Specimen Type Sample Site pH pCO2 pO2 HCO3 Base Excess Oxyhemoglobin ABG O2 Sat (Calculated) ABG O2 Saturation ABG Carboxyhemoglobin ABG Methemoglobin Christopher Test A-a O2 Difference Total Hemoglobin Lactate Liter Flow Blood Gas Modality FiO2 % Sodium Potassium Chloride Carbon Dioxide Anion Gap BUN Creatinine Estimated GFR/1.73 m2 BUN/Creatinine Ratio Glucose POC Glucose 500 H D 149 H D Calculated Osmolality Calcium Phosphorus Magnesium Assessment: Acute hypoxic respiratory failure. Bronchitis vs. possible viral pneumonitis. COVID-19 test performed and pending on results. Influenza tests are negative. Allergic rhinitis. Morbid obesity. BMI 38.5 with hypertension and diabetes. Plan: Continue supplemental oxygen as needed. We will follow up COVID-19 results. Continue antibiotics including Cefepime and Levaquin. Continue Ventolin inhaler, Zytec and Flonase. Continue IV Solu-Medrol. Continue GI and DVT prophylaxis. Continue droplet isolation.
[2019-04-29] MEDS: DUONEB (A & A) INH SCH (20:15)
[2019-04-29] MEDS: MIRAPEX PO SCH (22:35)
[2019-04-30] MEDS: DUONEB (A & A) INH SCH ×7 (00:06→23:27)
[2019-04-30] MEDS: SINEMET 25/100 PO SCH ×6 (01:44→20:46)
[2019-04-30] MEDS: NEURONTIN PO SCH ×6 (01:45→22:44)
[2019-04-30] MEDS: D5 1/2 NS 1,000 ML IV SCH (01:50)
[2019-04-30] MEDS: VENTOLIN HFA INH SCH ×3 (02:57→16:11)
[2019-04-30] MEDS: LOVENOX SUBQ SCH (06:32)
[2019-04-30] MEDS: SOLU-MEDROL IV SCH ×4 (06:32→22:44)
[2019-04-30] MEDS: HUMALOG SUBQ SCH ×4 (06:50→20:43)
[2019-04-30 07:06] LABS: BASO# 0.01 X1000 (0.0-0.2); BASO% 0.1 % (0.0-0.8); HEMATOCRIT 37.9 % (37.0-47.0); HEMOGLOBIN 11.6 g/dL (12.0-16.0); IMM GRAN# 0.07 X1000 (0.0-0.04); IMM GRAN% 0.8 % (0.0-0.5); LYMPH% 9.7 % (20.5-51.1); MCH 27.6 PG (27-31); MCHC 30.6 g/dL (33-37); MONO% 4.8 % (1.7-9.3); MPV 10.7 FL (7.4-10.4); NEUT# 6.99 X1000 (1.4-6.5); NEUT% 84.6 % (42.2-75.2); PLT 216 X1000 (130-400); RBC 4.21 XMIL (4.2-5.4); RDW 14.5 % (11.5-14.5); WBC 8.27 X1000 (4.8-10.8)
[2019-04-30 07:28] LABS: ESTIMATED GFR > 60
--- NOTE | 2019-04-30 07:34 | Diag Imaging Result Doc PS360 ---
EXAM: CHEST-PORTABLE INDICATION: dyspnea TECHNIQUE: One view COMPARISON: 04/27/2019 FINDINGS: The lungs are grossly clear. There is no discrete pleural fluid collection or pneumothorax. The cardiomediastinal silhouette and central vasculature are grossly unremarkable. IMPRESSION: No evidence of acute pathology by plain radiograph. Electronically signed by Bc Larry 04/30/2019 7:31 AM
[2019-04-30 07:36] LABS: AGAP 12; ALB/GLOB RATIO 1.3; ALBUMIN 3.9 g/dL (3.5-5.0); ALKALINE PHOSPHATASE 76 U/L (32-104); BUN 19 mg/dL (8-22); CALCIUM 9.2 mg/dL (8.8-10.2); CHLORIDE 98 mmol/L (98-107); COSMO 287; CREATININE 0.5 mg/dL (0.5-0.9); GLUCOSE 237 mg/dL (70-104); GOT 6 U/L (10-30); GPT < 5 U/L (10-36); MAGNESIUM 1.9 mg/dL (1.5-2.7); PHOSPHORUS 2.4 mg/dL (2.7-4.5); POTASSIUM 3.7 mmol/L (3.5-5.1); SODIUM 139 mmol/L (136-145); TCO2 29 mmol/L (25-35); TOTAL BILIRUBIN 0.31 mg/dL (0.20-1.00)
[2019-04-30] MEDS: ASPIRIN PO SCH (09:47)
[2019-04-30] MEDS: CYMBALTA PO SCH ×2 (09:48→20:44)
[2019-04-30] MEDS: LEVAQUIN PO SCH (09:49)
[2019-04-30] MEDS: ICAR-C PO SCH (09:49)
[2019-04-30] MEDS: FLONASE NAS SCH ×2 (09:49→20:49)
[2019-04-30] MEDS: MUCINEX PO SCH ×2 (09:51→20:46)
[2019-04-30] MEDS: PRAVACHOL PO SCH (09:51)
[2019-04-30] MEDS: MAXIPIME 1 GM in NS 50 ML IV SCH ×2 (09:51→20:43)
[2019-04-30] MEDS: ZYRTEC PO SCH (09:52)
--- NOTE | 2019-04-30 11:30 | PROGRESS NOTE ---
DATE: 04/30/2019 SUBJECTIVE: The patient is resting comfortably in bed. She is still short of breath and wheezing. I have placed this patient on breathing treatment. Her COVID-19 results are negative. She does have generalized weakness. I asked for Physical Therapy and Occupational Therapy to evaluate this patient. OBJECTIVE: Vital Signs: Temperature 98.1 degrees, pulse 105, respiratory rate 14, blood pressure 144/80, oxygen saturation 95% on 2.5 L nasal cannula. HEENT: Head normocephalic. No trauma. PERRLA. Neck: Supple. No JVD. No masses. Central trachea. Chest: Decreased breath sounds globally with crepitus and expiratory wheezing, prolonged expiratory phase. Abdomen: Soft, protuberant, nontender, nondistended. No hepatosplenomegaly. Extremities: She has a dressing on the right foot due to Charcot foot for recent surgery. Neurological: The patient is awake, alert. She is following commands. She does have generalized weakness. She is basically bed bound. She has tremors due to Parkinson's. LABORATORY: WBC 8.2, hemoglobin 11.6, hematocrit 37.9, platelets 216,000. Sodium 139, potassium 3.7, chloride 98, bicarbonate 29, BUN 19, creatinine 0.5, glucose 237, calcium 9.2. Phosphorus 2.4. ASSESSMENT AND PLAN: 1. Acute respiratory failure secondary to chronic obstructive pulmonary disease exacerbation/pneumonitis. COVID-19 results are negative. Will continue with same management. Pulmonary Department on board. I already added breathing treatment. Continue with steroids. 2. Type 2 diabetes. Continue with same treatment. I will stop the D5 half NS and will put her on only half NS. She is getting steroids and likely this is why the blood sugar is being high. 3. Parkinson disease and restless leg syndrome, aware. 4. History of hypertension. Blood pressure has been stable. 5. Because of the possibility of coinfection with a bacterial infection, she has been getting antibiotics. Pulmonary Department following this patient closely. 6. Morbid obesity with a body mass index of 38.5, aware. This patient is basically bed bound. 7. Charcot foot with recent surgery, aware. This is being monitored already. cc: Rodolfo Neumann MD
[2019-04-30] MEDS ORDERED: LANTUS INSULIN SUBQ ONE (12:43)
[2019-04-30] MEDS: 1/2 NS 1,000 ML IV SCH (13:10)
[2019-04-30] MEDS ORDERED: VENTOLIN HFA INH PRN (16:45)
[2019-04-30] MEDS: MIRAPEX PO SCH (20:46)
[2019-05-01] MEDS: SINEMET 25/100 PO SCH ×6 (01:53→21:28)
[2019-05-01] MEDS: NEURONTIN PO SCH ×8 (01:53→21:28)
--- NOTE | 2019-05-01 02:42 | PULMONOLOGY PROGRESS NOTE ---
DATE: 04/30/2019 SUBJECTIVE: The patient is awake and alert. She has a wet-sounding cough. OBJECTIVE: Vital Signs: The patient has been afebrile for the last 24 hours. Blood pressure 122/56, heart rate 105, respiratory rate 18, oxygen saturation 100% on 3 L per nasal cannula. HEENT: Pupils are equal and reactive. Oropharynx appears clear. Neck: Supple. Chest: Reveals scattered wheezing and rhonchi bilaterally. Cardiac: S1-S2. Abdomen: Obese and soft. Extremities: Reveal recent surgery on the right foot. LABORATORIES: Covid-19 testing is negative. White blood count 8.27, hemoglobin 11.6, platelet count 216,000. Sodium 139, potassium 3.7, chloride 98, bicarbonate 29, BUN 19, creatinine 0.5. IMPRESSION: 1. A 69-year-old with significant bronchitis with mucus plugging identified on her initial CT scan without evidence of pneumonitis. 2. Bronchospasm. 3. Occasional dysphagia. 4. Acute hypoxemic respiratory failure. PLAN: 1. Continue antibiotics, steroids and bronchodilators. 2. Continue Mucinex. 3. We will add Mucomyst in an attempt to help clear secretions. cc: Yusuf Guthrie MD
[2019-05-01] MEDS: DUONEB (A & A) INH SCH ×6 (03:40→23:35)
[2019-05-01] MEDS: SOLU-MEDROL IV SCH ×5 (05:48→21:31)
[2019-05-01] MEDS: LOVENOX SUBQ SCH (05:48)
[2019-05-01] MEDS: 1/2 NS 1,000 ML IV SCH ×3 (05:51→21:34)
[2019-05-01] MEDS: HUMALOG SUBQ SCH ×4 (06:54→21:32)
[2019-05-01] MEDS ORDERED: LANTUS INSULIN SUBQ ONE (07:34)
[2019-05-01] MEDS: MAXIPIME 1 GM in NS 50 ML IV SCH ×2 (08:37→21:31)
[2019-05-01] MEDS: ASPIRIN PO SCH (08:38)
[2019-05-01] MEDS: FLONASE NAS SCH ×2 (08:39→21:42)
[2019-05-01] MEDS: LEVAQUIN PO SCH (08:39)
[2019-05-01] MEDS: CYMBALTA PO SCH ×2 (08:39→21:28)
[2019-05-01] MEDS: ICAR-C PO SCH (08:39)
[2019-05-01] MEDS: MUCINEX PO SCH ×2 (08:40→21:27)
[2019-05-01] MEDS: PRAVACHOL PO SCH (08:40)
[2019-05-01] MEDS: ZYRTEC PO SCH (08:40)
--- NOTE | 2019-05-01 13:29 | PROGRESS NOTE ---
DATE: 05/01/2019 SUBJECTIVE: The patient is resting comfortably in bed. She is still having some shortness of breath, but compared with admission she seems to be much better. I will continue with breathing treatments. We will continue with same management. COVID-19 has been negative. Pulmonary Department on board. OBJECTIVE: Vital Signs: Temperature 97.9 degrees, pulse 107, respiratory rate 15, blood pressure 132/70, oxygen saturation 99% on 1 L nasal cannula. HEENT: Head normocephalic, no trauma. PERRLA. Neck: Supple. No JVD. No masses. Central trachea. Chest: Decreased breath sounds globally with crepitus and expiratory wheezing, prolonged expiratory phase. Abdomen: Soft, protuberant, nontender, nondistended. No hepatosplenomegaly. Extremities: She has a dressing to the right foot due to Charcot foot and recent surgery. Neurological: The patient is awake, she is following commands. She does have generalized weakness. She has tremors due to Parkinson's disease and she is basically bedbound. LABORATORY: No lab work done today. ASSESSMENT AND PLAN: 1. Acute respiratory failure secondary to chronic obstructive pulmonary disease exacerbation/pneumonitis. She does have significant bronchitis with mucus plugging identified on her initial CT scan. Continue with same treatment. 2. Type 2 diabetes. Continue with same management. I already stopped her D5 normal saline and I put her on half normal saline. She has been getting steroids and likely this is why the blood sugar has been high. I have given this patient a dose of insulin Lantus today. 3. History of hypertension. Continue with same management, stable. 4. Parkinson disease and restless legs syndrome, aware. 5. Bronchitis, possible but coinfection with bacterial infection. Continue with Infectious Disease. Continue with antibiotics. 6. Morbid obesity with a body mass index of 38.5. Aware. She is basically bedbound. 7. Charcot foot with recent surgery, aware. This has been monitored and we have been cleaning her wound. cc: Rodolfo Neumann MD
[2019-05-01] MEDS: MIRAPEX PO SCH (21:27)
[2019-05-01] MEDS: MUCOMYST 20% PO SCH (21:42)
--- NOTE | 2019-05-01 21:48 | PULMONOLOGY PROGRESS NOTE ---
DATE: 05/01/2019 SUBJECTIVE: The patient is awake and alert. She reports she is feeling better. She is not having significant sputum production. OBJECTIVE: Vital Signs: The patient has been afebrile for the last 24 hours. Blood pressure 140/74, heart rate 112, respiratory rate 18, oxygen saturation 97%. HEENT: Pupils are equal and reactive. Oropharynx appears clear. Neck: Supple. Chest: Reveals faint wheezing bilaterally. Cardiac: S1, S2. Abdomen: Soft. Extremities: Without edema. IMPRESSION: A 69-year-old with: 1. Severe bronchitis. 2. Bronchospasm. 3. Hypoxemic respiratory failure. 4. Dysphagia. PLAN: 1. Continue antibiotics. 2. Continue steroids. 3. Continue bronchodilators. 4. Continue mucolytics. cc: Yusuf Guthrie MD
[2019-05-02] MEDS: SINEMET 25/100 PO SCH ×6 (00:19→21:34)
[2019-05-02] MEDS: NEURONTIN PO SCH ×7 (01:06→21:34)
[2019-05-02] MEDS: SOLU-MEDROL IV SCH ×5 (03:35→21:35)
[2019-05-02] MEDS: LOVENOX SUBQ SCH (03:35)
[2019-05-02] MEDS: DUONEB (A & A) INH SCH ×6 (03:52→23:08)
[2019-05-02] MEDS: 1/2 NS 1,000 ML IV SCH (04:47)
[2019-05-02] MEDS: HUMALOG SUBQ SCH ×4 (06:16→21:36)
[2019-05-02 07:42] LABS: AGAP 13; BUN 28 mg/dL (8-22); CALCIUM 9.1 mg/dL (8.8-10.2); CHLORIDE 98 mmol/L (98-107); COSMO 291; CREATININE 0.6 mg/dL (0.5-0.9); ESTIMATED GFR > 60; GLUCOSE 242 mg/dL (70-104); POTASSIUM 3.9 mmol/L (3.5-5.1); SODIUM 139 mmol/L (136-145); TCO2 28 mmol/L (25-35)
[2019-05-02] MEDS: CYMBALTA PO SCH ×2 (08:43→21:35)
[2019-05-02] MEDS: PRAVACHOL PO SCH (08:43)
[2019-05-02] MEDS: LEVAQUIN PO SCH (08:43)
[2019-05-02] MEDS: ASPIRIN PO SCH (08:43)
[2019-05-02] MEDS: MAXIPIME 1 GM in NS 50 ML IV SCH ×2 (08:43→21:33)
[2019-05-02] MEDS: MUCINEX PO SCH ×2 (08:43→21:34)
[2019-05-02] MEDS: ZYRTEC PO SCH (08:43)
[2019-05-02] MEDS: ICAR-C PO SCH (08:43)
[2019-05-02] MEDS ORDERED: LANTUS INSULIN SUBQ SCH (10:45)
--- NOTE | 2019-05-02 11:04 | PROGRESS NOTE ---
DATE: 05/02/2019 SUBJECTIVE: The patient is resting in bed. She is still complaining of shortness of breath but better compared with admission. Covid-19 has been negative. Pulmonary Department on board. Continue with same management. She does have generalized weakness. I will ask for the clinical social work therapist to check if this patient qualifies to go to a rehab center. OBJECTIVE: Vital Signs: Temperature 97.7 degrees, pulse 76, respiratory rate 15, blood pressure 161/80, oxygen saturation 96 on room air. HEENT: Head normocephalic. No trauma. PERRLA. Neck: Supple. No JVD. No masses. Central trachea. Chest: Decreased breath sounds globally with crepitus and expiratory wheezing, prolonged expiratory phase. Abdomen: Soft, protuberant, nontender, nondistended. No hepatosplenomegaly. Extremities: She has a dressing to the right foot due to Charcot foot with recent surgery. Neurological: The patient is awake. She is following commands. She does have generalized weakness and tremors due to Parkinson disease, and she is basically bed bound, but she started walking a little bit with physical therapy. LABORATORY DATA: Sodium 139, potassium 3.9, chloride 98, bicarbonate 28, BUN 28, creatinine 0.6 glucose 242, calcium 9.1. ASSESSMENT AND PLAN: 1. Acute respiratory failure secondary to chronic obstructive pulmonary disease exacerbation. She does have significant bronchitis with mucus plugging identified on her initial CT scan. Continue with same management. Pulmonary Department on board. 2. Type 2 diabetes. Continue with same treatment. I already stopped her D5 normal saline and I put her on half normal saline. She has been getting steroids and that is probably why the blood sugar has been high. We will continue with her dose of Lantus today as well. 3. History of hypertension. Continue with same management. 4. Parkinson disease and restless leg syndrome, aware. 5. Bronchitis as per #1. 6. Morbid obesity with a body mass index of 38.5, and apparently, she is really sedentary and/or bed-bound. 7. Charcot foot with recent surgery, aware. This has been monitored. cc: Rodolfo Neumann MD
[2019-05-02] MEDS: FLONASE NAS SCH ×2 (12:54→21:36)
[2019-05-02] MEDS: PRILOSEC PO SCH ×2 (12:55→21:34)
[2019-05-02] MEDS: MUCOMYST 20% PO SCH ×3 (16:30→22:16)
--- NOTE | 2019-05-02 21:20 | PULMONOLOGY PROGRESS NOTE ---
DATE: 05/02/2019 SUBJECTIVE: The patient is awake and alert. She reports her breathing has improved. OBJECTIVE: Vital Signs: The patient has been afebrile for the last 24 hours. Blood pressure 143/75, heart rate 109, respiratory rate 20, oxygen saturation 100% on room air. HEENT: Pupils are equal and reactive. Oropharynx appears clear. Neck: Is supple. Chest: Reveals wheezing and rhonchi bilaterally with increased air flow compared to yesterday. Cardiac exam: S1-S2. Abdomen: Is soft and obese. Extremities: Without edema. LABORATORIES: Sodium 139, potassium 3.9, chloride 98, bicarbonate 28, BUN 0.6. IMPRESSION: A 69-year-old with 1. Severe bronchitis. 2. Severe bronchospasm. 3. Hypoxemic respiratory failure. 4. Dysphagia. PLAN: 1. Continue current antibiotics. 2. Continue steroids. 3. Continue bronchodilators and mucolytics. cc: Yusuf Guthrie MD
[2019-05-02] MEDS: MIRAPEX PO SCH (21:34)
[2019-05-03] MEDS: TYLENOL PO PRN ×2 (00:06→22:44)
[2019-05-03] MEDS: SINEMET 25/100 PO SCH ×6 (00:06→20:08)
[2019-05-03] MEDS: NEURONTIN PO SCH ×6 (01:01→22:44)
[2019-05-03] MEDS: 1/2 NS 1,000 ML IV SCH ×2 (01:02→15:32)
[2019-05-03] MEDS: SOLU-MEDROL IV SCH ×3 (03:56→16:30)
[2019-05-03] MEDS: LOVENOX SUBQ SCH (03:56)
[2019-05-03] MEDS: DUONEB (A & A) INH SCH ×6 (04:18→23:08)
[2019-05-03] MEDS: HUMALOG SUBQ SCH ×4 (06:11→20:16)
[2019-05-03] MEDS: PRILOSEC PO SCH ×2 (06:11→20:11)
[2019-05-03 07:14] LABS: BASO# 0.01 X1000 (0.0-0.2); BASO% 0.1 % (0.0-0.8); HEMATOCRIT 34.9 % (37.0-47.0); HEMOGLOBIN 10.9 g/dL (12.0-16.0); IMM GRAN# 0.21 X1000 (0.0-0.04); IMM GRAN% 2.1 % (0.0-0.5); MCH 27.6 PG (27-31); MCHC 31.2 g/dL (33-37); MCV 88.4 FL (81-99); MONO# 0.33 X1000 (0.11-0.59); MONO% 3.3 % (1.7-9.3); MPV 10.7 FL (7.4-10.4); NEUT# 8.93 X1000 (1.4-6.5); NEUT% 89.5 % (42.2-75.2); PLT 187 X1000 (130-400); RBC 3.95 XMIL (4.2-5.4); RDW 14.3 % (11.5-14.5); WBC 9.98 X1000 (4.8-10.8)
[2019-05-03 07:23] LABS: AGAP 12; BUN 28 mg/dL (8-22); CALCIUM 8.7 mg/dL (8.8-10.2); CHLORIDE 96 mmol/L (98-107); COSMO 282; CREATININE 0.6 mg/dL (0.5-0.9); ESTIMATED GFR > 60; GLUCOSE 250 mg/dL (70-104); SODIUM 134 mmol/L (136-145); TCO2 26 mmol/L (25-35)
[2019-05-03 07:39] LABS: LYMPHS 4 % (21-51); MONO 4 % (1-9); SEGS 92 % (42-75)
[2019-05-03] MEDS: MUCOMYST 20% PO SCH (07:40)
[2019-05-03] MEDS: LEVAQUIN PO SCH (08:36)
[2019-05-03] MEDS: MAXIPIME 1 GM in NS 50 ML IV SCH ×2 (08:36→20:09)
[2019-05-03] MEDS: PRAVACHOL PO SCH (08:36)
[2019-05-03] MEDS: ASPIRIN PO SCH (08:37)
[2019-05-03] MEDS: ZYRTEC PO SCH (08:37)
[2019-05-03] MEDS: MUCINEX PO SCH ×2 (08:37→20:10)
[2019-05-03] MEDS: ICAR-C PO SCH (08:37)
[2019-05-03] MEDS: CYMBALTA PO SCH ×2 (08:37→20:08)
[2019-05-03] MEDS: LANTUS INSULIN SUBQ SCH (08:38)
[2019-05-03] MEDS: FLONASE NAS SCH ×2 (08:43→20:09)
--- NOTE | 2019-05-03 12:55 | PROGRESS NOTE ---
DATE: 05/03/2019 SUBJECTIVE: The patient is resting in bed. Her shortness of breath is better, and actually she is not on oxygen right now. COVID-19 has been negative. Pulmonary Department on board. I will decrease a little bit the frequency of the steroids, and hopefully tomorrow I will decrease it even more. I increased the dose of Lantus from 30 to 35. OBJECTIVE: Vital Signs: Temperature 99.1 degrees, pulse 110, respiratory rate 16, blood pressure 150/66, oxygen saturation 99% on room air. HEENT: Head normocephalic, no trauma. PERRLA. Neck: Supple. No JVD. No masses. Central trachea. Chest: Decreased breath sounds globally with some crepitus at the base, mostly at the bases, and expiratory wheezing and faint expiratory wheezing, prolonged expiratory phase. Abdomen: Soft, protuberant, nontender, nondistended. No hepatosplenomegaly. Extremities: She has a dressing to the right foot due to Charcot foot with recent surgery. Neurological: The patient is awake. She is following commands. She does have generalized weakness and tremors due to Parkinson's. As per the patient, she is basically bed bound, but she has started doing some movement and standing up with physical therapy. LABORATORY: WBC 9.9, hemoglobin 10.9, hematocrit 34.9, platelets 187,000. Sodium 134, potassium 4, chloride 96, bicarbonate 26, BUN 28, creatinine 0.6, glucose 250, calcium 8.7. ASSESSMENT AND PLAN: 1. Acute respiratory failure secondary to chronic obstructive pulmonary disease, bronchitis. She also has mucus plugging identified on her initial CT scan. We will continue with same management for now. I do believe she is getting better. I will decrease the dose of the steroids. 2. Chronic obstructive pulmonary disease exacerbation. As above, the frequency of the steroids has been decreased. 3. Type 2 diabetes. Continue with same management. I have placed this patient on Lantus, and I increased the dose a little bit to 35 units. 4. History of hypertension. Continue with same management. 5. Parkinson disease and restless legs like syndrome, aware. 6. Bronchitis. As per number 1, continue with antibiotics. 7. Morbid obesity with a body mass index of 38.5, aware. She apparently is really sedentary and/or bed bound. She started working in physical therapy, and she seems to be doing some steps. The plan is to send this patient to a rehab center if she qualifies. [employer] worker has been notified. 8. Charcot foot. Apparently she had a recent intervention. This has been monitored. cc: Rodolfo Neumann MD
[2019-05-03] MEDS: MIRAPEX PO SCH (20:09)
[2019-05-04] MEDS: SINEMET 25/100 PO SCH ×6 (00:57→20:12)
[2019-05-04] MEDS: SOLU-MEDROL IV SCH ×2 (00:58→08:39)
--- NOTE | 2019-05-04 01:51 | PULMONOLOGY PROGRESS NOTE ---
DATE: 05/03/2019 SUBJECTIVE: The patient is awake, alert and conversant. She reports her breathing continues to improve. She does have some wheezing, but she reports her sputum production has resolved. OBJECTIVE: Vital Signs: The patient has been afebrile for the last 24 hours. Blood pressure 132/69, heart rate 21, oxygen saturation is 98%. HEENT: Pupils are equal and reactive. Oropharynx appears clear. Neck: Supple. Chest: Reveals occasional rhonchi bilaterally with faint wheezing. Cardiac: S1, S2. Abdomen: Soft. Extremities: Without edema. IMPRESSION: A 69-year-old with: 1. Bronchospasm. 2. Bronchitis. 3. Hypoxemic respiratory failure. DISCUSSION: A 69-year-old with the problems as above. She continues to improve. PLAN: Continue current treatment regimen. cc: Yusuf Guthrie MD
[2019-05-04] MEDS: NEURONTIN PO SCH ×6 (02:00→21:49)
[2019-05-04] MEDS: DUONEB (A & A) INH SCH ×6 (03:13→23:07)
[2019-05-04] MEDS: LOVENOX SUBQ SCH (04:29)
[2019-05-04] MEDS: TYLENOL PO PRN (04:50)
[2019-05-04] MEDS: HUMALOG SUBQ SCH ×4 (06:02→21:48)
[2019-05-04 06:51] LABS: AGAP 10; BUN 24 mg/dL (8-22); CALCIUM 8.6 mg/dL (8.8-10.2); CHLORIDE 99 mmol/L (98-107); COSMO 282; CREATININE 0.5 mg/dL (0.5-0.9); ESTIMATED GFR > 60; GLUCOSE 209 mg/dL (70-104); POTASSIUM 4.3 mmol/L (3.5-5.1); SODIUM 136 mmol/L (136-145); TCO2 27 mmol/L (25-35)
[2019-05-04] MEDS: PRILOSEC PO SCH ×2 (07:03→20:15)
[2019-05-04] MEDS: LANTUS INSULIN SUBQ SCH (08:34)
[2019-05-04] MEDS: LEVAQUIN PO SCH (08:36)
[2019-05-04] MEDS: MUCINEX PO SCH ×2 (08:36→20:15)
[2019-05-04] MEDS: PRAVACHOL PO SCH (08:37)
[2019-05-04] MEDS: HYDROCHLOROTHIAZIDE PO SCH (08:37)
[2019-05-04] MEDS: NORVASC PO SCH (08:37)
[2019-05-04] MEDS: ASPIRIN PO SCH (08:37)
[2019-05-04] MEDS: ICAR-C PO SCH (08:37)
[2019-05-04] MEDS: CYMBALTA PO SCH ×2 (08:37→20:13)
[2019-05-04] MEDS: ZYRTEC PO SCH (08:37)
[2019-05-04] MEDS: MAXIPIME 1 GM in NS 50 ML IV SCH ×2 (08:38→20:14)
[2019-05-04] MEDS: MICARDIS PO SCH (08:38)
[2019-05-04] MEDS: FLONASE NAS SCH ×2 (08:43→20:14)
[2019-05-04] MEDS: 1/2 NS 1,000 ML IV SCH ×2 (10:17→13:23)
[2019-05-04] MEDS: MUCOMYST 20% PO SCH ×2 (11:00→20:51)
--- NOTE | 2019-05-04 12:50 | PROGRESS NOTE ---
DATE: 05/04/2019 SUBJECTIVE: This patient is resting comfortably in bed. She seems to be getting better slowly. I will continue with the same management, but I will decrease the dose of steroids from 40 IV q.8 hours to 20 every 12 hours, and hopefully tomorrow, depending on how she does, I will go ahead and decrease it even more or switch it to p.o. The plan is to send this patient to a rehab center. OBJECTIVE: Vital Signs: Temperature 97.4 degrees, pulse 105, respiratory rate 18, blood pressure 156/85, oxygen saturation 97% on room air. HEENT: Head normocephalic. No trauma. PERRLA. Neck: Supple. No JVD. No masses. Central trachea. Chest: Decreased breath sounds globally with some crepitus at the bases, mostly mild end expiratory wheeze seen, faint, prolonged expiratory phase. Abdomen: Soft, protuberant, nontender, nondistended. No hepatosplenomegaly. Extremities: She has a dressing on the right foot due to Charcot foot with recent surgery in February 2019. Neurological: Patient is awake. She is following commands. She does have generalized tremors due to Parkinson disease. LABORATORY DATA: Sodium 136, potassium 4.3, chloride 99, bicarbonate 27, BUN 24, creatinine 0.5 glucose 209, calcium 8.6. ASSESSMENT AND PLAN: 1. Acute respiratory failure secondary to chronic obstructive pulmonary disease, bronchitis. She also has mucus plugging identified on her initial CT scan. We will continue with the same management for now. I do believe she is getting better. I will decrease the dose of the steroids today. 2. Chronic obstructive pulmonary disease exacerbation as above. The frequency and the amount of steroids has been decreased and hopefully tomorrow, depending on her symptoms, I will decrease it even more or change it to p.o. treatment. 3. Type 2 diabetes. Continue with same management. This patient has been on Lantus. 4. History of hypertension. Continue with same treatment. 5. Parkinson disease and restless leg syndrome, aware. 6. Bronchitis. Continue with antibiotics. 7. Morbid obesity with a body mass index of 38.5, aware. Apparently, she is sedentary and she describes herself as bed bound. Physical therapy started working on this patient and she is doing some progression. It looks like she is standing up and doing some steps. 8. Charcot foot. Apparently, she had a recent intervention a couple of months ago. This has been monitored. cc: Rodolfo Neumann MD
[2019-05-04] MEDS: MIRAPEX PO SCH (20:14)
[2019-05-04] MEDS ORDERED: SOLU-MEDROL IV SCH (20:30)
--- NOTE | 2019-05-04 23:00 | PULMONOLOGY PROGRESS NOTE ---
DATE: 05/04/2019 SUBJECTIVE: The patient is awake and alert. She reports her breathing has improved. She reports she was too weak to get out of the bed and stand. She reports sputum production has diminished. OBJECTIVE: Vital Signs: The patient has been afebrile for the last 24 hours. Blood pressure 147/77, heart rate 91 respiratory rate 18, oxygen saturation 100% on 2 L per nasal cannula. HEENT: Pupils are equal and reactive. Oropharynx appears clear. Neck: Supple Chest: Occasional wheezing bilaterally but her exam has markedly improved. Cardiac exam: S1-S2. Abdomen: Obese and soft. Extremities: Chronic dressing on right foot related to prior Charcot surgery. IMPRESSION: 1. A 69 year old with bronchospasm. 2. Severe bronchitis. 3. Hypoxemic respiratory failure. DISCUSSION: Patient continues to improve. She currently is on methylprednisolone, cefepime, Levaquin. I believe she could be transitioned to oral steroids and antibiotics soon with potential for discharge home. cc: Yusuf Guthrie MD
[2019-05-05] MEDS: SINEMET 25/100 PO SCH ×6 (00:14→22:55)
[2019-05-05] MEDS: NEURONTIN PO SCH ×6 (01:55→22:55)
[2019-05-05] MEDS: DUONEB (A & A) INH SCH ×6 (03:52→23:43)
[2019-05-05] MEDS: LOVENOX SUBQ SCH (04:20)
[2019-05-05] MEDS: HUMALOG SUBQ SCH ×4 (06:04→23:00)
[2019-05-05] MEDS: PRILOSEC PO SCH ×2 (06:05→22:54)
[2019-05-05] MEDS: MUCOMYST 20% PO SCH ×3 (06:32→22:57)
[2019-05-05 07:24] LABS: AGAP 11; BUN 22 mg/dL (8-22); CALCIUM 8.7 mg/dL (8.8-10.2); CHLORIDE 97 mmol/L (98-107); COSMO 279; CREATININE 0.5 mg/dL (0.5-0.9); ESTIMATED GFR > 60; GLUCOSE 192 mg/dL (70-104); SODIUM 135 mmol/L (136-145); TCO2 27 mmol/L (25-35)
[2019-05-05] MEDS: ICAR-C PO SCH (08:54)
[2019-05-05] MEDS: CYMBALTA PO SCH ×2 (08:54→22:55)
[2019-05-05] MEDS: MUCINEX PO SCH ×2 (08:54→22:55)
[2019-05-05] MEDS: PRAVACHOL PO SCH (08:55)
[2019-05-05] MEDS: ZYRTEC PO SCH (08:55)
[2019-05-05] MEDS: FLONASE NAS SCH ×2 (08:55→22:59)
[2019-05-05] MEDS: ASPIRIN PO SCH (08:55)
[2019-05-05] MEDS: NORVASC PO SCH (08:56)
[2019-05-05] MEDS: MICARDIS PO SCH (08:56)
[2019-05-05] MEDS: HYDROCHLOROTHIAZIDE PO SCH (09:11)
[2019-05-05] MEDS: LANTUS INSULIN SUBQ SCH (09:16)
[2019-05-05] MEDS: OMNICEF PO SCH ×2 (09:44→22:55)
[2019-05-05] MEDS: PREDNISONE PO SCH (09:44)
--- NOTE | 2019-05-05 12:39 | PROGRESS NOTE ---
DATE: 05/05/2019 SUBJECTIVE: The patient seems to be a whole lot better. She is breathing without oxygen. She seems to be stable. She does have just mild scattered faint expiratory wheezing. Her cough improved. I will stop the cefepime and the levofloxacin. She has been already on those medication for 7 days at least, and I will put her on Augmentin to complete 3 more days. I will switch the IV steroids to p.o. steroids, and I just need to wait for the rehab center placement. OBJECTIVE: Vital Signs: Temperature 97.4 degrees, pulse 102, respiratory rate 20, blood pressure 134/82, oxygen saturation 97% on room air. HEENT: Head normocephalic, no trauma. PERRLA. Neck: Supple. No JVD. No masses. Central trachea. Chest: Decreased breath sounds globally with some crepitus at the bases, mostly mild and scattered expiratory wheezing, faint. Abdomen: Soft, protuberant, nontender, nondistended. Extremities: She has a dressing on the right foot due to Charcot foot with surgery in February 2019. Neurological examination: Patient is awake, she is alert, she is following commands. She does have generalized tremors due to Parkinson disease. LABORATORY: Sodium 135, potassium 4, chloride 97, bicarbonate 27. BUN 22, creatinine 0.5, glucose 192, calcium 8.7. ASSESSMENT AND PLAN: 1. Acute respiratory failure secondary to chronic obstructive pulmonary disease, bronchitis. She also has mucus plugging identified on her initial CT scan. I do believe her condition is much better. I have stopped the intravenous steroids and antibiotics, and I put her on oral treatment. 2. Chronic obstructive pulmonary disease exacerbation, as above. 3. Type 2 diabetes. Continue with the same management. I have decreased the dose of Lantus because I will stop the intravenous steroids. 4. History of hypertension. Continue with same management. 5. Parkinson disease and restless leg syndrome. Aware. 6. Bronchitis. Continue with antibiotics. 7. Morbid obesity with a body mass index of 38.5. Aware. Apparently she has been sedentary and she describes herself as bed-bound, but physical therapy started working with her and she actually is doing some progression slowly. 8. Charcot foot. Apparently, she had a recent intervention a couple months ago. We have been monitoring this wound. cc: Rodolfo Neumann MD
--- NOTE | 2019-05-05 15:54 | DISCHARGE SUMMARY ---
ADMISSION DATE: 04/27/2019 DISCHARGE DATE: DISCHARGE DIAGNOSES: 1. Acute hypoxemic and hypercarbic respiratory failure secondary to chronic obstructive pulmonary disease exacerbation. 2. Chronic obstructive pulmonary disease exacerbation. 3. Bronchitis. 4. Mucus plugging identified on her initial CT scan. 5. Type 2 diabetes, controlled with diet. 6. Hypertension. 7. Parkinson disease and restless legs syndrome. 8. Morbid obesity with a body mass index of 38.5. 9. Charcot foot with the recent surgery. PROCEDURES PERFORMED: 1. Chest x-ray dated 04/26/2019, impression: Borderline cardiomegaly. 2. CT angiogram dated 04/26/2019, impression: No evidence of pulmonary embolism, possible stenosis of the medial left subclavian vein versus artifact of positioning, mild left hilar and mediastinal adenopathy, bilateral adrenal enlargement. 3. Chest x-ray dated 04/27/2019, impression: Negative exam. 4. Chest x-ray dated 04/30/2019, no evidence of acute pathology by plain radiograph. CONSULTS: Pulmonary Department, Dr. Guthrie. HOSPITAL COURSE: This is a 69-year-old female with a past medical history of diabetes, complicated with Charcot foot, apparently osteomyelitis in that area, history of Parkinson disease, restless legs syndrome, and hypertension. Her diabetes has been controlled with diet at home. Apparently the patient was treated for a total of 6 weeks for osteomyelitis of the right foot, which was secondary to her preexisting short Charcot foot infection. She recently got out of the snf apparently 3 days before admission. She was admitted on 04/27/2019. She started having some cough the same day of discharge, and wheezing spells, yellowish sputum, respiratory symptoms, but she denied any fever or chills. The patient denies any leg swelling, PND, or orthopnea. She states that she has been wheezing for 2 days with shortness of breath with mild exertion. Her oxygen saturation at home was around 70%. She denies any genitourinary or gastrointestinal symptoms, no chest pain. No polyuria or polydipsia. No nausea, vomiting or diarrhea. She was admitted to the medical floor. We ruled out coronavirus 19 for this patient. We did a CT angiogram that also ruled out any possibility of pulmonary embolism. She does have bronchitis and some mucus plugging identified. She was placed on antibiotics, breathing treatment, and oxygen supplementation. She was getting better on a daily basis. She also received steroids. Her blood sugar increased and she was treated with Lantus, which will be stopped upon discharge because she was able to control her diabetes with diet. She was evaluated by Pulmonary Department and they followed this patient throughout the hospitalization, she is feeling much better. She is not requiring oxygen at this moment, but she is really weak. She will be discharged to a rehab center, we will complete the course of antibiotics through her mouth. PHYSICAL EXAMINATION: Vital signs: Temperature 97.4, pulse 102, respiratory rate 20, blood pressure 134/82, oxygen saturation 97% on room air. HEENT: Head normocephalic, atraumatic. PERRLA. Neck: Supple. No JVD. No masses. Central trachea. Chest: Decreased breath sounds globally with some crepitus at the bases, mostly mild scattered expiratory wheezing, faint. Abdomen: Soft, protuberant, nontender, nondistended. No hepatosplenomegaly. Extremities: She has a dressing to the right foot due to Charcot foot with surgery in February 2019, that looks fine. Neurological: The patient is awake, alert. She is following commands. She has generalized tremors due to Parkinson disease. LABORATORY: Sodium 135, potassium 4.0, chloride 97, bicarbonate 27, BUN 22, creatinine 0.5, glucose 192, calcium 8.7. DISCHARGE MEDICATIONS: Acetaminophen 600 mg p.o. as needed, Ventolin HFA 2 puff inhaler as needed, amlodipine 1 tablet p.o. daily, aspirin 1 tablet p.o. daily 81 mg, Sinemet 25/100 two tab p.o. as directed 6 times per day, cefdinir 300 mg p.o. b.i.d., Zyrtec 10 mg p.o. daily, Cymbalta 60 mg p.o. b.i.d., Flonase 2 spray intranasal b.i.d., gabapentin 140 mg p.o. 5 times a day, Mucinex 600 mg p.o. b.i.d. as needed, Icar-C 1 tablet p.o. daily, milk of magnesia 30 mL as needed p.o., omeprazole 40 mg p.o. daily, Mirapex 1.5 mg p.o. at bedtime, pravastatin 40 mg p.o. daily, prednisone 20 mg p.o. daily, and there is a scheduled treatment to taper this down, telmisartan hydrochlorothiazide 80/25 mg p.o. daily, and temazepam and 15 mg p.o. daily. TIME SPENT: Time discharging this patient 40 minutes. cc: Rodolfo Neumann MD
[2019-05-05] MEDS: MIRAPEX PO SCH (22:53)
[2019-05-06] MEDS: SINEMET 25/100 PO SCH ×4 (02:28→11:47)
[2019-05-06] MEDS: NEURONTIN PO SCH ×3 (02:28→09:02)
[2019-05-06] MEDS: DUONEB (A & A) INH SCH ×3 (03:45→11:28)
[2019-05-06] MEDS: PRILOSEC PO SCH (06:07)
[2019-05-06] MEDS: LOVENOX SUBQ SCH (06:07)
[2019-05-06] MEDS: HUMALOG SUBQ SCH ×2 (06:07→11:37)
[2019-05-06 07:29] LABS: HEMOGLOBIN A1C 6.2 % (4.8-6.0)
[2019-05-06] MEDS: MICARDIS PO SCH (08:51)
[2019-05-06] MEDS: NORVASC PO SCH (08:51)
[2019-05-06] MEDS: ZYRTEC PO SCH (08:51)
[2019-05-06] MEDS: HYDROCHLOROTHIAZIDE PO SCH (08:51)
[2019-05-06] MEDS: PREDNISONE PO SCH (08:51)
[2019-05-06] MEDS: MUCOMYST 20% PO SCH (08:51)
[2019-05-06] MEDS: CYMBALTA PO SCH (08:51)
[2019-05-06] MEDS: MUCINEX PO SCH (08:51)
[2019-05-06] MEDS: ICAR-C PO SCH (08:51)
[2019-05-06] MEDS: OMNICEF PO SCH (08:51)
[2019-05-06] MEDS: PRAVACHOL PO SCH (08:51)
[2019-05-06] MEDS: ASPIRIN PO SCH (08:51)
[2019-05-06] MEDS: LANTUS INSULIN SUBQ SCH (08:52)
[2019-05-06] MEDS: FLONASE NAS SCH (11:36)
--- NOTE | 2019-05-06 11:36 | PROGRESS NOTE ---
DATE: 05/06/2019 SUBJECTIVE: The patient seems to be feeling better. She is breathing without oxygen. She has been discharged today. She will go to a rehab center so she can get her strength back. She will go with antibiotics, breathing treatment, and her home medications. OBJECTIVE: Vital Signs: Temperature 97.4 degrees, pulse 95, respiratory rate 16, blood pressure 127/76, oxygen saturation 98 on 2 L of nasal cannula. HEENT: Head normocephalic, no trauma. PERRLA. Neck: Supple. No JVD. No masses. Central trachea. Chest: Decreased breath sounds globally with some crepitus at the bases. No wheezing today. Abdomen: Soft, nontender, nondistended. No hepatosplenomegaly. Extremities: She has a dressing to the right foot due to Charcot foot with surgery in February 2019. Neurological examination: Patient is awake. She is alert, she is oriented x3. No focal deficits, but weakness, and she does have generalized tremors due to Parkinson disease. LABORATORY: Hemoglobin A1c 6.2. ASSESSMENT AND PLAN: 1. Acute respiratory failure secondary to chronic obstructive pulmonary disease exacerbation, bronchitis. She also has a mucus plugging identified on her initial CT scan. I do believe her condition is much better. We have stopped the intravenous steroids, and now she is on oral treatment as well with oral antibiotics. 2. Chronic obstructive pulmonary disease exacerbation as above, much better. 3. Type 2 diabetes, controlled with diet. Her hemoglobin A1c is good at 6.2. 4. History of hypertension. Continue with same management. 5. Parkinson disease and restless leg syndrome. Aware. 6. Bronchitis. Continue with antibiotics. 7. Morbid obesity with a body mass index of 38.5. Aware. The patient seems to be sedentary, and also she describes herself as a bed-bound patient, but she has been working on physical therapy and standing up. 8. Charcot foot. Apparently, she has a recent intervention a couple months ago. We have been monitoring the wound. I will add ipratropium inhaler to her medications upon discharge. cc: Rodolfo Neumann MD
[2019-05-06 12:14] VITALS: BP 117/70
== END 2019-05-06 12:34 | DRG 190 ==
LOC: ED 17:14 → SUATTDRO 04-27 03:08 → 4N 04-27 03:08 → 3N 04-27 03:34
PROVIDERS: ATTEND Internal Medicine